=== PATIENT | female | born 1935 | race Caucasian/White ===

== ENCOUNTER 2023-05-17 12:21 | Observation (INO) ==
[2023-05-17] MEDS ORDERED: Midazolam 5 mg/5 ml VIAL 1 mg/ml 5 ml VIAL (5 mg) ONE (14:04)
[2023-05-17] MEDS ORDERED: Lidocaine 1% VIAL 10 MG/ML 30 ML VIAL ONE (14:05)
[2023-05-17] MEDS ORDERED: Iohexol 300 (CONTRAST) 10 ML SDV ONE (14:05)
[2023-05-17] MEDS ORDERED: fentaNYL 100 mcg/2 ml 50 MCG/ML VIAL ONE (14:05)
[2023-05-17] MEDS ORDERED: Albuterol HFA INHALER 8 gm MDI INH PRN (17:19)
[2023-05-17] MEDS ORDERED: Fluticasone NASAL SPRAY 50MCG 16 gm SPRAY BTL INTRANASAL PRN (17:19)
[2023-05-17] MEDS: NS 0.9% 1000 ml BAG 1,000 ML IV ONE (18:05)
[2023-05-17] MEDS: Midazolam 10 mg/10 ml VIAL 1 mg/ml 10 ml VIAL (10 mg) IV SLOW PU ONE (18:06)
[2023-05-17] MEDS: ceFAZolin 2 GM/50 ML BAG IV ONE (18:06)
[2023-05-17] MEDS: fentaNYL 100 mcg/2 ml 50 MCG/ML VIAL IV SLOW PU ONE (18:06)
[2023-05-17] MEDS: NS 0.9% 1000 ml BAG 1,000 ML IV SCH (19:44)
[2023-05-17] MEDS: Dorzolamide/Timolol OPTH (NF) 10 ML BOT BOTH EYES SCH (21:14)
[2023-05-17] MEDS: Latanoprost 0.005% 2.5 ml BTL BOTH EYES SCH (21:14)
[2023-05-17] MEDS: ceFAZolin VIAL 1 GM in NS 0.9% 50 ML 50 ML IVPB SCH (21:14)
[2023-05-18 08:17] LABS: Hematocrit 39.6 % (35-45); Hemoglobin 13.5 g/dL (11.5-14.3); Mean Corpuscular Hemoglobin 31.5 pg (27-33); Mean Corpuscular Hgb Conc 34.1 g/dL (31-36); Mean Corpuscular Volume 92.2 fL (80-97); Mean Platelet Volume 8.2 fL (7.5-11.2); Platelet Count 228 10^3/uL (150-450); Red Blood Count 4.29 10^6/uL (3.63-4.92); Red Cell Distribution Width 13.6 % (12-17); White Blood Count 7.3 10^3/uL (3.8-11.8)
[2023-05-18 08:35] LABS: Albumin 3.4 g/dL (3.2-5.2); Albumin/Globulin Ratio 1.2 (1-3); Calcium 8.7 mg/dL (8.6-10.3); Creatinine, Serum 0.59 mg/dL (0.51-0.95); Globulin 2.8 g/dL (2-4); Potassium 3.6 mmol/L (3.5-5.0); Total Bilirubin 0.5 mg/dL (0.2-1.0); Total Protein 6.2 g/dL (6.4-8.9); eGFR CKD-EPI 87.2 (>60)
[2023-05-18] MEDS: Mometasone/Formoter 200/5 MDI INH SCH (08:58)
[2023-05-18 10:07] VITALS: BP 133/76
[2023-05-18] MEDS: Potassium Chlor 20 meq TAB.ER PO ONE (13:18)
== END 2023-05-18 13:21 | disposition home or self-care (01) ==
LOC: CHICATH 12:21 → MEDTELE 12:21
PROVIDERS: ADMIT Specialist; ATTEND Internal Medicine